=== PATIENT | female | born 1995 | race Caucasian/White ===

== ENCOUNTER 2020-07-16 13:37 | Emergency (ER) | payer BC, OTHER ==
[2020-07-16] MEDS ORDERED: AUGMENTIN 875-1 EACH PO (16:02)
== END 2020-07-16 16:17 | disposition home or self-care (01) ==
LOC: ER1 13:37
DX: S61.251A Open bite of left index finger without damage to nail, initial encounter (principal); Z23 Encounter for immunization; Z88.1 Allergy status to other antibiotic agents; W55.01XA Bitten by cat, initial encounter; Y92.009 Unspecified place in unspecified non-institutional (private) residence as the place of occurrence of the external cause
CPT/HCPCS: 73140; 90471; 90715; 99283